=== PATIENT | female | born 2005 | race African-American/Black ===

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

== ENCOUNTER 2024-02-08 22:28 | Observation (INO) | payer SELFPAY ==
[~2024-02-08] VITALS: Ht 170.2 cm; Wt 57.8 kg
[~2024-02-08 22:28] MED LIST changes: +MACROBID 100 M100 MG PO; +ONDANSETRON ODT8 MG PO; +PAXLOVID 300-11 EAC1 PO; +TRAMADOL HCL50 MG PO
[2024-02-08 22:48] LABS: HEMATOCRIT 28.3 % (35.0-50.0); HEMOGLOBIN 8.7 g/dL (12.0-18.0); MCH 17.8 (27-36); MCHC 30.8 g/dl (30-36); RBC 4.88 M/ul (4.3-5.7)
[2024-02-08 22:51] LABS: EOSINOPHILS 5.2 % (0-6); LYMPHOCYTES 41.9 % (24-44); MCV 57.9 fl (81-99); MONOCYTES 3.9 % (0-12); PLATELET COUNT 392 K/uL (140-440); RDW 19.8 (10.5-15.0)
[2024-02-08 22:59] LABS: BILIRUBIN, URINE NEGATIVE (negative); BLOOD/HGB, URINE NEGATIVE (Negative); KETONE, URINE NEGATIVE (Negative); LEUK ESTERASE, URINE TRACE (negative); NITRITE, URINE NEGATIVE (negative); PH, URINE 6.5 (5-7)
[2024-02-08 23:06] LABS: ALBUMIN 4.3 g/dL (3.4-5.0); ALBUMIN/GLOBULIN RATIO 1.34 (1.1-2.4); ALCOHOL, MEDICAL <3 ng/dL (<3); ALKALINE PHOSPHATASE 42 U/L (46-116); ALT (SGPT) 13 U/L (14-59); ANION GAP 17.4 (7-21); AST (SGOT) 13 U/L (15-37); BILIRUBIN, TOTAL 0.6 ng/dL (0.2-1.0); BUN/CREATININE RATIO 14.28 (6.0-28.6); CALCIUM 8.8 mg/dL (8.5-10.1); CARBON DIOXIDE 23 mmol/L (21-32); CHLORIDE 102 mmol/L (98-107); CREATININE, SERUM 0.56 mg/dL (0.55-1.02); GLOMERULAR FILTRATION RATE,EST 134 mL/min (>60); POTASSIUM 3.4 mmol/L (3.5-5.1); PROTEIN, TOTAL 7.5 g/dL (6.4-8.2); TSH, 3RD GENERATION 0.988 uIU/mL (0.516-4.130); UREA NITROGEN 8 mg/dL (7-18)
[2024-02-08 23:08] LABS: BACTERIA, URINE RARE /hpf (negative); CASTS, URINE NONE SEEN \\lpf; CRYSTALS, URINE NONE SEEN (0-1+); EPITHELIAL CELLS, URINE SQUAMOUS 1+ /lpf (0-1+)
[2024-02-08 23:09] LABS: COLLECTION TYPE, URINE CLEAN CATCH; REFLEX CULTURE, URINE No (No)
[2024-02-08] MEDS ORDERED: LACTATED RINGER'S 1,000 ML IV ONE (23:15)
[2024-02-08 23:23] LABS: ACETAMINOPHEN 141 ug/mL (10-30)
[2024-02-08 23:27] LABS: SALICYLATE <0.2 mg/dL (2.8-20.0)
[2024-02-09 00:08] LABS: AMPHETAMINES, URINE NEGATIVE (NEGATIVE); BARBITURATES, URINE NEGATIVE (NEGATIVE); BENZODIAZEPINE, URINE NEGATIVE (NEGATIVE); BUPRENORPHINE, URINE NEGATIVE (NEGATIVE); CANNABINOID, URINE NEGATIVE (NEGATIVE); COCAINE, URINE NEGATIVE (NEGATIVE); ECSTASY, URINE NEGATIVE (NEGATIVE); FENTANYL, URINE NEGATIVE (NEGATIVE); METHADONE, URINE NEGATIVE (NEGATIVE); OPIATES, URINE NEGATIVE (NEGATIVE); OXYCODONE, URINE NEGATIVE (NEGATIVE); PHENCYCLIDINE, URINE NEGATIVE (NEGATIVE)
[2024-02-09 02:08] LABS: ACETAMINOPHEN 155 ug/mL (10-30)
[2024-02-09] MEDS ORDERED: DEXTROSE 5% 500 ML IV ONE (02:28)
[2024-02-09] MEDS ORDERED: ACETYLCYSTEINE IV ONE (02:30)
[2024-02-09] MEDS ORDERED: DEXTROSE 5% IV ONE (02:30)
--- NOTE | 2024-02-09 02:46 | NUR ---
PT EN ROUTE FROM ED PER AILEEN MARX.
[2024-02-09 03:05] VITALS: BP 124/73
--- NOTE | 2024-02-09 03:30 | NUR ---
ADMISSION ASSESSMENT COMPLETE. PT DENIES WANTING TO HARM HERSELF. PT STATES "I WASN'T TRYING TO KILL MYSELF. I JUST DIDN'T WANT IT TO HURT ANYMORE." PT EXPLAINED SHE HAD A BREAKUP WITH HER BOYFRIEND OF 1 YEAR AND WAS UPSET OVER IT. PT TEARFUL. PT ORIENTED TO UNIT, ROOM AND PLAN OF CARE. PT REQUESTED AND PROVIDED ICE CHIPS. PT DENIES ADDITIONAL NEEDS. CALL LIGHT IN PLACE. BED IN LOW, LOCKED POSITION. VSS AND NAD NOTED VIA DIRECT OBS, CONTINUOUS MONITOR AND PT STATEMENT. PT SISTER AT BEDSIDE.
[2024-02-09 04:00] VITALS: BP 130/96
[2024-02-09] MEDS ORDERED: ONDANSETRON 4 MG TAB ODT SL PRN (04:00)
--- NOTE | 2024-02-09 04:55 | NUR ---
POISON CONTROL CALLED FOR PT STATUS UPDATE. ALL QUESTIONS ANSWERED. REQUESTED 2130 LABS TONIGHT FOR ALT, AST, INR AND ACETAMINOPHEN. ORDERS ENTERED.
[2024-02-09 05:00] VITALS: BP 129/78
--- NOTE | 2024-02-09 05:39 | NUR ---
PT RESTING IN BED WITH EYES CLOSED. PT EASILY AWAKENED TO VOICE. PT DENIES NEEDS AT THIS TIME. CALL LIGHT IN REACH, PERSONAL CELL PHONE CHANRGING PER REQUEST. BED IN LOW, LOCKED POSITION. VSS AND NAD NOTED VIA DIRECT OBS AND CONTINUOUS MONITOR.
[2024-02-09 06:00] VITALS: BP 112/67
[2024-02-09] MEDS ORDERED: POTASSIUM CHLORIDE 10 MEQ TABCR PO ONE ×2 (06:30→08:30)
--- NOTE | 2024-02-09 06:54 | NUR ---
DR. BIGGS AT BEDSIDE
--- NOTE | 2024-02-09 07:03 | NUR ---
REPORT GIVEN AND CARE ENDORSED TO DAYSHIFT RN'S. VSS AND NAD NOTED VIA CONTINUOUS MONITOR AND DIRECT OBS. PT RESTING IN BED USING PERSONAL CELLPHONE.
--- NOTE | 2024-02-09 07:30 | NUR ---
report rceived. PATIENT IS LAYING IN BED. DENIES PAIN, IS TEARY. IVF PATENT.
--- NOTE | 2024-02-09 08:00 | NUR ---
UP TO BR TO VOID 600 ML OF CLEAR YELLOW URINE. IS STABLE ON FEET. 3RD BAG IVF OF ACETYLCYSTEINE INFUSING AT 62.5 ML/HR. PATIENT DENIES PAIN. IS TEARY. TALKED WITH PATIENT ABOUTPOC FOR THE DAY, IS UNDERSTANDING.
--- NOTE | 2024-02-09 08:45 | NUR ---
TOOK BREAKFAST POOR. HAS BEEN ON CELL PHONE.
--- NOTE | 2024-02-09 09:00 | NUR ---
DR. BIGGS HERE TO SEE PATIENT AND TALK WITH HER ABOUT POC. PATIENT IS UNDERSTANDING.
--- NOTE | 2024-02-09 11:00 | NUR ---
RESTING WITH TV ON. DENIES PAIN OR PROBLEMS. IVF INFUSING. BETTER EYE CONTACT. NOT EMOTIONAL NOW EARLIER.
--- NOTE | 2024-02-09 12:00 | NUR ---
ASSESSMENT DONE. UP TO BR TO VOID. STABLE OPN FEET. BACK TO BED, SITTING UP IN BED FOR LUNCH.
--- NOTE | 2024-02-09 13:30 | NUR ---
MALE FRIEND IN ROOM. PATIENT DOING FINE.
--- NOTE | 2024-02-09 16:00 | NUR ---
LABS DRAWN. ASSESSMENT COMPLETE. NO CHANGES.
[2024-02-09 16:17] LABS: ACETAMINOPHEN 0 ug/mL (10-30); ALBUMIN 3.7 g/dL (3.4-5.0); ALBUMIN/GLOBULIN RATIO 1.12 (1.1-2.4); ALKALINE PHOSPHATASE 35 U/L (46-116); ALT (SGPT) 15 U/L (14-59); ANION GAP 17.7 (7-21); AST (SGOT) 13 U/L (15-37); BILIRUBIN, TOTAL 0.9 ng/dL (0.2-1.0); BUN/CREATININE RATIO 3.38 (6.0-28.6); CALCIUM 8.3 mg/dL (8.5-10.1); CARBON DIOXIDE 22 mmol/L (21-32); CHLORIDE 105 mmol/L (98-107); CREATININE, SERUM 0.59 mg/dL (0.55-1.02); GLOMERULAR FILTRATION RATE,EST 132 mL/min (>60); POTASSIUM 3.7 mmol/L (3.5-5.1); UREA NITROGEN 2 mg/dL (7-18)
--- NOTE | 2024-02-09 16:50 | NUR ---
DR. BIGGS AWARE OF LABS. POISON CONTROL NOTIFIED. POISON CONTROL SAID IT WOULD BE FINE TO DC ACETYLCYSTEINE AND DISCHARGE PATIENT. PATIENT IS AWARE.
--- NOTE | 2024-02-10 12:52 | EKG ---
[facility] [address] [place] [address] Signed Normal sinus rhythm Normal ECG When compared with ECG of 28-FEB-2021 10:22, T wave inversion no longer evident in Anterior leads Confirmed by AARON BIGGS MD ([id number]) on 02/10/2024 12:52:04 PM Electronically Signed By: AARON BIGGS 02/10/24 1252 PATIENT NAME: NIRAJ ETIENNENICOLE FRIEDMAN Electrocardiogram DATE OF : [birth year] PHYSICIAN: AARON BIGGS REPORT #: [id number] REPORT IS CONFIDENTIAL AND NOT TO BE RELEASED WITHOUT AUTHORIZATION
[2024-02-10 21:02] LABS: IRON BINDING CAPACITY TOTAL 461 ug/dL (240-450); IRON,SERUM OR PLASMA 12 ug/dL (28-170); TRANSFERRIN SATURATION 3 %sat (20-50)
== END 2024-02-09 18:10 | disposition home or self-care (01) ==
LOC: ED 22:28 → CCU 22:29
PROVIDERS: Internal Medicine; ADMIT Internal Medicine; ATTEND Internal Medicine
DX: T39.1X2A Poisoning by 4-Aminophenol derivatives, intentional self-harm, initial encounter (principal); G40.909 Epilepsy, unspecified, not intractable, without status epilepticus; F32.9 Major depressive disorder, single episode, unspecified; J45.909 Unspecified asthma, uncomplicated; D50.9 Iron deficiency anemia, unspecified; Z88.8 Allergy status to other drugs, medicaments and biological substances
CPT/HCPCS: 36415; 80053; 80307; 81001; 83550; 84443; 84450; 84460; 84703; 85025; 85060; 85610; 93005; 93010; A9270; G0480; J0132; J7060; J7070; J7121

== ENCOUNTER 2024-09-26 13:27 | Emergency (ER) | payer OTHER ==
[~2024-09-26] VITALS: Ht 170.2 cm; Wt 60.3 kg
[2024-09-26] MEDS ORDERED: predniSONE 20 MG TAB PO ONE (16:15)
[2024-09-26] MEDS ORDERED: ALBUTEROL/IPRATROPIUM 3 ML NEB INH ONE (16:15)
[2024-09-26] MEDS ORDERED: PREDNISONE20 MG PO (17:49)
[2024-09-26 18:07] VITALS: BP 126/72
== END 2024-09-26 18:07 | disposition home or self-care (01) ==
LOC: ED 13:27
DX: J06.9 Acute upper respiratory infection, unspecified (principal); J45.909 Unspecified asthma, uncomplicated; G40.909 Epilepsy, unspecified, not intractable, without status epilepticus; Z79.899 Other long term (current) drug therapy; Z88.8 Allergy status to other drugs, medicaments and biological substances
CPT/HCPCS: 87502; 94640; 94664; 99284; 99406; J7512; U0002

== ENCOUNTER 2024-12-09 15:07 | Emergency (ER) | payer OTHER ==
[~2024-12-09] VITALS: Ht 170.2 cm; Wt 64.9 kg
[~2024-12-09 15:07] MED LIST changes: +PREDNISONE20 MG PO
[2024-12-09 16:12] VITALS: BP 117/63
== END 2024-12-09 16:14 | disposition home or self-care (01) ==
LOC: ED 15:07
DX: S63.616A Unspecified sprain of right little finger, initial encounter (principal); X58.XXXA Exposure to other specified factors, initial encounter; G40.909 Epilepsy, unspecified, not intractable, without status epilepticus; J45.909 Unspecified asthma, uncomplicated; Z88.8 Allergy status to other drugs, medicaments and biological substances; Z79.899 Other long term (current) drug therapy
CPT/HCPCS: 99283

== ENCOUNTER 2025-04-20 16:27 | Emergency (ER) | payer OTHER ==
[~2025-04-20] VITALS: Ht 170.2 cm; Wt 61.0 kg
[2025-04-20] MEDS ORDERED: IBUPROFEN600 MG PO (17:00)
[2025-04-20] MEDS ORDERED: AVIANE1 EACH PO (17:00)
[2025-04-20 17:30] VITALS: BP 131/81
== END 2025-04-20 17:31 | disposition home or self-care (01) ==
LOC: ED 16:27
DX: M79.662 Pain in left lower leg (principal); M79.661 Pain in right lower leg; G40.909 Epilepsy, unspecified, not intractable, without status epilepticus; J45.909 Unspecified asthma, uncomplicated; Z88.8 Allergy status to other drugs, medicaments and biological substances; Z79.3 Long term (current) use of hormonal contraceptives; Z79.899 Other long term (current) drug therapy
CPT/HCPCS: 99283

== ENCOUNTER 2025-06-05 01:06 | Emergency (ER) | payer OTHER ==
[~2025-06-05] VITALS: Ht 170.2 cm; Wt 65.1 kg
[~2025-06-05 01:06] MED LIST changes: +AVIANE1 EACH PO; +IBUPROFEN600 MG PO
[2025-06-05] MEDS ORDERED: CYCLOBENZAPRINE HCL 10 MG TAB PO ONE (02:15)
[2025-06-05] MEDS ORDERED: KETOROLAC TROMETHAMINE 30 MG/ML VIAL IM ONE (02:15)
[2025-06-05] MEDS ORDERED: LIDOCAINE HCL 4% 1 EACH PATCH TD ONE (02:15)
[2025-06-05] MEDS ORDERED: LIDODERM1 EACH TOP (06:28)
[2025-06-05] MEDS ORDERED: NAPROSYN500 MG PO (06:28)
[2025-06-05] MEDS ORDERED: CYCLOBENZAPRINE10 MG PO (06:28)
[2025-06-05 07:09] VITALS: BP 123/88
[2025-06-05] MEDS ORDERED: LIDOCAINE PATCH REMOVAL 1 EA TD SCH (21:00)
== END 2025-06-05 07:08 | disposition home or self-care (01) ==
LOC: ED 01:06
DX: S20.221A Contusion of right back wall of thorax, initial encounter (principal); W03.XXXA Other fall on same level due to collision with another person, initial encounter; Z88.8 Allergy status to other drugs, medicaments and biological substances
CPT/HCPCS: 99283; A9270; J1885